=== PATIENT | male | born 1950 | race Caucasian/White ===

== ENCOUNTER 2020-02-16 11:14 | Inpatient (IN) ==
--- NOTE | 2020-01-12 12:07 | PAT Medication Instructions ---
Medication Instructions Date of Service January 12, 2020 Home Medications aspirin 325 mg PO QAM buspirone 5 mg PO QAM carvedilol 25 mg PO BID cholecalciferol (vitamin D3) [Vitamin D3] 50 mcg PO QAM digoxin [Digox] 125 mcg PO HS empagliflozin 25 mg PO TID ezetimibe 10 mg PO QAM furosemide 20 mg PO Q OTHER DAY gemfibrozil 600 mg PO BID hydrochlorothiazide 25 mg PO QAM insulin aspart U-100 [Novolog U-100 Insulin aspart] 1 sliding scale dose SUBCUT USEASDIRECTD insulin glargine [Lantus U-100 Insulin] 40 unit SUBCUT BID multivitamin 1 cap PO QAM pantoprazole 40 mg PO QAM sacubitril-valsartan [Entresto] 1 tab PO BID spironolactone 25 mg PO QAM tamsulosin 0.4 mg PO HS ASK your prescriber and surgeon aspirin 325 mg PO QAM STOP taking 48 hours before surgery gemfibrozil 600 mg PO BID DO NOT take the morning of surgery cholecalciferol (vitamin D3) [Vitamin D3] 50 mcg PO QAM empagliflozin 25 mg PO TID furosemide 20 mg PO Q OTHER DAY hydrochlorothiazide 25 mg PO QAM insulin aspart U-100 [Novolog U-100 Insulin aspart] 1 sliding scale dose SUBCUT USEASDIRECTD multivitamin 1 cap PO QAM spironolactone 25 mg PO QAM sacubitril-valsartan [Entresto] 1 tab PO BID Take morning of surgery With a small sip of water, OTHERWISE NOTHING TO EAT OR DRINK AFTER MIDNIGHT: buspirone 5 mg PO QAM carvedilol 25 mg PO BID ezetimibe 10 mg PO QAM pantoprazole 40 mg PO QAM Take evening before surgery carvedilol 25 mg PO BID digoxin [Digox] 125 mcg PO HS empagliflozin 25 mg PO TID insulin aspart U-100 [Novolog U-100 Insulin aspart] 1 sliding scale dose SUBCUT USEASDIRECTD insulin glargine [Lantus U-100 Insulin] 40 unit SUBCUT BID sacubitril-valsartan [Entresto] 1 tab PO BID tamsulosin 0.4 mg PO HS Insulin Dependent Diabetic Patients * Test your blood sugar the morning of surgery * If Blood Sugar is GREATER THAN 150, take HALF of your regular dose of: insulin glargine [Lantus U-100 Insulin] (20 units) * If Blood Sugar is LESS THAN 150, DO NOT TAKE ANY: insulin glargine [Lantus U- 100 Insulin] Other Notes If you have any questions please call us at [phone] or [phone] or [phone] or [phone]
--- NOTE | 2020-01-13 13:19 | Anesthesiology Consultation ---
Date of Service January 13, 2020 Assessment & Plan (1) Encounter for pre-operative examination: COVID Status: As of 01/12 assessment, patient denies travel to endemic area, known exposure/sick contacts, or symptoms of COVID19. Patient instructed that they and their household members must follow strict social distancing guidelines, wear a mask in public and avoid travel for 14 days prior to surgery. Preoperative COVID19 testing to be completed prior to surgery per surgeon's arrangements. Patient made aware to self-isolate as much as possible between COVID testing and surgery. Cardiology 01/10/20 = "dyspnea on exertion Significantly improved with Entresto. He no longer qualifies for an implantable defibrillator with the dramatic improvement in left ventricular systolic function... A preoperative stress test will definitely be positive so we will need to do preoperative cardiac catheterization to get him through his surgery." CARDIAC CATH DONE 01/23. PENDING REPORT AND FINAL CARDIOLOGY CLEARANCE. Chart Review Chart Review: Acceptable Risk for Surgery (pending final cardio clearance and cath report) and Patient seen in Pre Admission Testing Teaching & Discussion Instructed NPO after midnight before surgery, except medications with 15 cc of water. Medication instructions provided according to the PAT guidelines. History Surgery Operation Date: 02/16/20 07:15 Proposed Procedures p Right Reversed Total Shoulder Arthroplasty, Biceps Tenodesis - Naveen Lopez MD Height/Weight Height: 5 ft 9 in Weight: 104.3 kg Allergies Allergy/AdvReac Type Severity Reaction Status Date / Time metformin Allergy Mild Nausea Verified 01/11/20 11:14 Medications Home Medications Medication Instructions Recorded Confirmed Last Taken aspirin 325 mg PO QAM 01/11/20 01/11/20 Unknown buspirone 5 mg PO QAM 01/11/20 01/11/20 Unknown carvedilol 25 mg PO BID 01/11/20 01/11/20 Unknown cholecalciferol (vitamin D3) 50 mcg PO QAM 01/11/20 01/11/20 Unknown [Vitamin D3] digoxin [Digox] 125 mcg PO HS 01/11/20 01/11/20 Unknown empagliflozin 25 mg PO TID 01/11/20 01/11/20 Unknown ezetimibe 10 mg PO QAM 01/11/20 01/11/20 Unknown furosemide 20 mg PO Q OTHER DAY 01/11/20 01/11/20 Unknown gemfibrozil 600 mg PO BID 01/11/20 01/11/20 Unknown hydrochlorothiazide 25 mg PO QAM 01/11/20 01/11/20 Unknown insulin aspart U-100 [Novolog 1 sliding scale dose SUBCUT 01/11/20 01/11/20 Unknown U-100 Insulin aspart] USEASDIRECTD insulin glargine [Lantus U-100 40 unit SUBCUT BID 01/11/20 01/11/20 Unknown Insulin] multivitamin 1 cap PO QAM 01/11/20 01/11/20 Unknown pantoprazole 40 mg PO QAM 01/11/20 01/11/20 Unknown sacubitril-valsartan [Entresto] 1 tab PO BID 01/11/20 01/11/20 Unknown spironolactone 25 mg PO QAM 01/11/20 01/11/20 Unknown tamsulosin 0.4 mg PO HS 01/11/20 01/11/20 Unknown Past Medical History Medical History CAD (coronary artery disease) s/p CABG 1997 and 4 subsequent stents Congestive heart failure On Entresto, pt reports significant improvement in SOB/STOCKTON Diabetes mellitus, type 2 History of IN (myocardial infarction) 1997 Sleep apnea Couldn't tolerate CPAP Exercise / Class Metabolic Activity II 4-5 Yardwork/Stairs/Walk up hill (No CP or SOB with 1 FOS, does daily; some STOCKTON if carrying groceries up the steps) Past Surgical History Surgical History H/O cardiac catheterization 2017- Showed CHF History of ankle fracture with repair History of colonoscopy 2018 History of coronary artery bypass graft [facility], [facility] 4 stents total (unsure if bare metal or drug) Most recent stent placed 2013 History of tonsillectomy History of tooth extraction wisdom teeth Past Anesthesia History No Hx of Anesthesia Complications and No Family Hx of Anesthesia Complications History of PONV No Hx of PONV and No Hx of Motion Sickness Social History Smoking Status: Former smoker tobacco type: cigars Do You Dip or Chew Tobacco: No (quit 5 years) Smoking End Date: quit 25 years ago Hx Alcohol Use: Yes Alcohol type: beer alcohol intake frequency: holidays/special occasions only Hx Substance Use: No substance use type: does not use Review of Systems Pt denies any recent chest pain, shortness of breath, palpitations, cough, fever, URI, or uncontrolled acid reflux. Physical Exam Vital Signs BP: 102/67 P: 69bpm SPO2: 97% RA T: 98.4 F R: 12 ENMT Mouth: + dental restorations (veneers on all front upper and lower teeth); no chipped teeth and no loose teeth Thyromental Distance: > or= 3.5 Finger Breadths (4) Mallampati Class: III Neck normal visual inspection; neck extension not limited Respiratory normal respiratory effort Auscultation: lungs clear to auscultation bilaterally Cardiovascular Rate/Rhythm: regular rate and regular rhythm Heart Sounds: no murmur Vessels: no carotid bruit Extremities: no edema Testing Laboratory Results 01/13/20 12:35 01/13/20 12:35 PT 10.8 Seconds (9.0-12.0) 01/13/20 12:35 INR 1.0 (0.9-1.1) 01/13/20 12:35 APTT 26.5 Seconds (21.0-31.0) 01/13/20 12:35 Hemoglobin A1c 8.8 % (4.5-5.6) H 01/13/20 12:35 Urine Color Yellow 01/13/20 12:35 Urine Appearance Clear (Clear) 01/13/20 12:35 Urine pH 5.0 (4.5-7.5) 01/13/20 12:35 Ur Specific [place] 1.017 (1.000-1.030) 01/13/20 12:35 Urine Protein Negative (Negative) 01/13/20 12:35 Urine Glucose (UA) 3+ (Negative) H 01/13/20 12:35 Urine Ketones Negative (Negative) 01/13/20 12:35 Urine Nitrite Negative (Negative) 01/13/20 12:35 Ur Leukocyte Esterase Negative (Negative) 01/13/20 12:35 Blood Type O Positive 01/13/20 12:35 Antibody Screen NEGATIVE 01/13/20 12:35 Electrocardiogram Date: 01/10/20 Findings: + NSR @ (70bpm) Left axis deviation. Incomplete left bundle branch block. Nonspecific ST and T wave abnormality. Chest X-Ray Date: 01/13/20 Findings: + NAD Mild cardiomegaly. Prior median sternotomy. The lungs are clear. Diaphragms are smooth. Cardiac Catheterization Date: 12/18/17 Severe ischemic cardiomyopathy with an EF of 20%. The CARLOS to the LAD is the only patent graft. The wrangell RCA and circumflex are occluded. *Per cardiology, patient opted for medical mgmt, no ICD, and EF subsequently improved to 45%
--- NOTE | 2020-01-13 14:33 | XRay Report ---
XR chest Pre-admission PA/Lat CLINICAL HISTORY: pat preoperative evaluation COMPARISON STUDY: None FINDINGS: Mild cardiomegaly. Prior median sternotomy. The lungs are clear. Diaphragms are smooth. IMPRESSION: No acute process. ACT 112: Negative or not required by law. The above report was generated using voice recognition software. It may contain grammatical, syntax or spelling errors. Electronically signed by: Eliu Conn M.D. 01/13/2020 2:31 PM
[2020-01-13 14:39] LABS: Basophils # (auto) 0.03 K/uL (0-0.2); Basophils % (auto) 0.4 %; Eosinophils # (auto) 0.84 K/uL (0-0.5); Eosinophils % (auto) 9.8 %; Hematocrit (blood only) 42.5 % (42-52); Hemoglobin 14.2 g/dL (14.0-18.0); Immature Granulocytes % (auto) 1.2 %; Lymphocytes # (auto) 1.98 K/uL (1.2-3.4); Lymphocytes % (auto) 23.2 %; Mean Corpuscular Hgb Conc 33.4 g/dL (32-36); Mean Corpuscular Volume 89.7 fL (80-100); Mean Platelet Volume 9.8 fL (7.4-10.4); Monocytes # (auto) 0.55 K/uL (0.11-0.59); Monocytes % (auto) 6.4 %; Neutrophils # (auto) 5.05 K/uL (1.4-6.5); Platelet Count 216 K/uL (130-400); RDW Coefficient of Variation 13.3 % (11.5-14.5); Red Blood Count 4.74 M/uL (4.7-6.1); White Blood Count 8.55 K/uL (4.8-10.8)
[2020-01-13 14:43] LABS: Appearance Urine Clear (Clear); Bilirubin Urine Negative (Negative); Blood Urine Negative (Negative); Color Urine Yellow; Estimated Average Glucose 206 mg/dl; Glucose Urine UA 3+ (Negative); Hemoglobin A1C 8.8 % (4.5-5.6); Ketones Urine Negative (Negative); Leukocyte Esterase Urine Negative (Negative); Nitrite Urine Negative (Negative); Protein Urine Negative (Negative); Specific Gravity Urine 1.017 (1.000-1.030); Urobilinogen Urine Negative (Negative)
[2020-01-13 14:46] LABS: Albumin Level 3.7 gm/dl (3.4-5.0); BUN Creatinine Ratio 16.2 (10-20); Calcium 9.4 mg/dl (8.5-10.1); Creatinine Clr Calc Pharmacy 54.1 ml/min; Est GFR (Non-African American) 46.6; Potassium 4.1 mmol/L (3.5-5.1)
[2020-01-13 15:00] LABS: Partial Thromboplastin Ratio 0.9; Partial Thromboplastin Time 26.5 Seconds (21.0-31.0); Prothrombin Time 10.8 Seconds (9.0-12.0)
--- NOTE | 2020-02-15 20:41 | History and Physical Report ---
DATE OF ADMISSION: 02/16/2020 CHIEF COMPLAINT: Chronic right shoulder pain and weakness. HISTORY OF PRESENT ILLNESS: This is a 69-year-old male patient of Dr. Lopez'rand complaining of chronic right shoulder pain, longstanding, now progressively getting worse. The patient has failed conservative treatment including physical therapy, intra-articular injections, anti-inflammatories. The patient has been diagnosed with rotator cuff arthropathy per MRI exam and wished to proceed with right reverse total shoulder arthroplasty. PAST MEDICAL HISTORY: Coronary artery disease status post an NH in 1997, hypertension, hypercholesterolemia, sleep apnea, diabetes with insulin, osteoarthritis, acid reflux, obesity, dental issues, kidney stones. SOCIAL HISTORY: Nonsmoker and nondrinker. PAST SURGICAL HISTORY: CABG in 1997, stents placement in 2013. FAMILY HISTORY: Noncontributory. REVIEW OF SYSTEMS: Chronic right shoulder pain and weakness. Otherwise, denies any shortness of breath, chest pain, nausea, vomiting or any other joint complaints. MEDICATIONS: 1. Digoxin 250 mcg daily. 2. Furosemide 20 mg daily. 3. Nitroglycerin 0.4 mg sublingual as needed. 4. Aspirin 325 mg daily. 5. Carvedilol 25 mg twice daily. 6. Plavix 75 mg daily. 7. Empagliflozin 10 mg daily. 8. Entresto 1 tablet twice daily. 9. Flomax 0.4 mg daily at bedtime. 10. Gemfibrozil 600 mg 1 tablet twice daily. 11. Hydrochlorothiazide 12.5 mg daily. 12. Insulin per sliding scale as needed. 13. Lantus insulin as needed per sliding scale. 14. Pantoprazole 40 mg 1/2 tablet before meals. 15. Crestor 40 mg daily. 16. Spironolactone 25 mg daily. 17. Vitamin D twice daily. 18. Zetia 10 mg daily. ALLERGIES: METFORMIN. PHYSICAL EXAMINATION: GENERAL: Well-developed, well-nourished 69-year-old male, in no acute distress. He is alert and oriented x3 and pleasant. HEENT: Normocephalic, atraumatic. Extraocular motions are intact. Pupils are equal and reactive to light. HEART: Regular rate and rhythm. No murmurs appreciated. LUNGS: Clear. ABDOMEN: Soft, nontender, bowel sounds present. EXTREMITIES: Right upper extremity active range of motion of 0-165. Passive range of motion is full with pain and crepitation. He has positive Hooker's and impingement maneuvering. Neurologically and neurovascularly is intact in his right upper extremity. DIAGNOSES: Right shoulder rotator cuff arthropathy, coronary artery disease status post an NH in 1997, hypertension, hypercholesterolemia, sleep apnea, diabetes with insulin, osteoarthritis, acid reflux, obesity, history of kidney stone, history of dental issues. PLAN: The patient was advised of his diagnosis. Indications, risks, benefits, postop course have all been reviewed. The patient wished to proceed with a right reversed total shoulder arthroplasty. Necessary consent forms, preoperative testing and clearances will be obtained. LUPE
[~2020-02-16 11:14] MED LIST: ACETAMINOPHEN 500 MG TAB PO SCH; BUPIVACAINE 0.5 % 5 MG/1 ML PF 10ML VIAL ONE; CEFAZOLIN 2000MG 2,000 MG/15 ML SYR IV SCH; CeleBREX 200 MG CAP PO SCH; EPINEPHrine INJ 1 MG/ML AMP ONE; FAMOTIDINE 20 MG TAB PO SCH; GABAPENTIN 300 MG CAP PO SCH; LR 15ML/HR IV SCH; METOCLOPRAMIDE HCL 10 MG TABLET PO SCH; MIDAZOLAM HCL 1 MG/ML 2ML VIAL ONE; ROPIVACAINE 0.5% 5 MG/ML 30 ML VIAL ONE; dexAMETHasone 4 MG TAB PO SCH; fentaNYL citrate 100 MCG/2 ML VIAL ONE
--- NOTE | 2020-02-16 12:38 | History & Physical Bridge Note ---
Date of Service February 16, 2020 History & Physical Bridge Note I have examined the patient, reviewed the History & Physical and in the interval since the performance of the History & Physical I have noted the following changes of clinical significance: no changes noted
[2020-02-16] MEDS ORDERED: BACITRACIN INJ 50,000 UNIT VIAL ONE (12:44)
[2020-02-16] MEDS ORDERED: ATROPINE SULFATE 0.1 MG/ML 10ML SYR IV PRN (13:44)
[2020-02-16] MEDS ORDERED: HYDROmorphone INJ 1 MG/ML SYRINGE IV PRN (13:44)
[2020-02-16] MEDS ORDERED: ePHEDrine sulfate 50 MG/ML AMP IV PRN (13:44)
[2020-02-16] MEDS ORDERED: fentaNYL citrate 100 MCG/2 ML VIAL IV PRN (13:44)
[2020-02-16] MEDS ORDERED: ONDANSETRON INJ 2 MG/ML 2 ML VIAL IV PRN ×2 (13:44→18:06)
[2020-02-16] MEDS ORDERED: ONDANSETRON INJ 2 MG/ML 2 ML VIAL ONE (14:01)
[2020-02-16] MEDS ORDERED: PROPOFOL IV EMULSION 10 MG/ML 20 ML VIAL IV ONE (14:01)
[2020-02-16] MEDS ORDERED: ROCURONIUM BROMIDE 10 MG/ML 5 ML VIAL IV ONE ×2 (14:01→15:57)
[2020-02-16] MEDS ORDERED: SUCCINYLCHOLINE CHLORIDE 20 MG/ML 10 ML VIAL IV ONE (14:01)
[2020-02-16] MEDS ORDERED: ePHEDrine sulfate 50 MG/ML SYR ONE (14:03)
[2020-02-16] MEDS ORDERED: PHENYLEPHRINE HCL 10 MG/ML VIAL ONE ×2 (14:03→16:21)
[2020-02-16] MEDS ORDERED: PHENYLEPHRINE 100MCG/ML 5ML SYR ONE (14:03)
[2020-02-16] MEDS ORDERED: NEOSTIGMINE METHYLSULFATE 5 MG/5 ML SYR ONE (14:11)
[2020-02-16] MEDS ORDERED: GLYCOPYRROLATE 0.2 MG/ML VIAL ONE (14:11)
[2020-02-16] MEDS ORDERED: LARYING-O-JET KIT (LTA) ONE (16:18)
--- NOTE | 2020-02-16 16:52 | Post Operative Brief Note ---
Immediate Post Op Note v1 Date of Surgery February 16, 2020 Pre & Post Diagnosis Operation Date: 02/16/20 13:10 Pre-Op Diagnosis: Osteoarthritis, Right Shoulder, Biceps Tendinopathy, Rotator Cuff Arthropathy, Chronic Irrepairible Rotator Cuff, Calcific Tendonitis Post-Op Diagnosis: Osteoarthritis, Right Shoulder, Biceps Tendinopathy, Rotator Cuff Arthropathy, Chronic Irrepairible Rotator Cuff, Calcific Tendonitis I identified the patient and participated in the time-out.: Yes Procedure Operation Date: 02/16/20 13:10 Actual Procedures p Right Reversed Total Shoulder Arthroplasty, Biceps Tenodesis, Excision of Calcium Deposit, Rotator Cuff(Right) - Naveen Lopez MD Surgeon Naveen Lopez MD Catering Manager Nicanor DIAZ Estimated Blood Loss 150 Findings Consistent with Post-Op Diagnosis Specimens Humeral head Drains Hemovac Drain Anesthesia Type General Regional Complications none Disposition Accompanied Patient To Recovery: No Disposition: Recovery Room Overlapping Procedure I was immediately available: during the entire case.
--- NOTE | 2020-02-16 17:10 | Operative Report ---
Post Operative Report Pre & Post Diagnosis Operation Date: 02/16/20 13:10 Pre-Op Diagnosis: Osteoarthritis, Right Shoulder, Biceps Tendinopathy, Rotator Cuff Arthropathy, Chronic Irrepairible Rotator Cuff, Calcific Tendonitis Post-Op Diagnosis: Osteoarthritis, Right Shoulder, Biceps Tendinopathy, Rotator Cuff Arthropathy, Chronic Irrepairible Rotator Cuff, Calcific Tendonitis I identified the patient and participated in the time-out.: Yes Procedure Operation Date: 02/16/20 13:10 Actual Procedures p Right Reversed Total Shoulder Arthroplasty, Biceps Tenodesis, Excision of Calcium Deposit, Rotator Cuff(Right) - Naveen Lopez MD Surgeon Naveen Lopez MD Assistant Professor Of History Nicanor DIAZ Estimated Blood Loss 150 Findings Consistent with Post-Op Diagnosis Specimens Humeral head Drains 2 Hemovac Anesthesia Type General Regional Complications none Disposition Accompanied Patient To Recovery: No Disposition: Recovery Room Indications 69-year-old male with chronic pain right shoulder failed conservative management. Patient has marked weakness and pain. X-rays and MRI demonstrates calcium deposits in the supraspinatus consistent with calcific tendinitis advanced rotator cuff arthropathy with glenohumeral osteoarthritis subacromial impingement AC joint osteoarthritis large irreparable rotator cuff tear subscapularis supraspinatus infraspinatus with retraction and marked widening of the biceps with biceps tendinopathy Description of Procedure The patient was taken to the operating room and anesthetized under regional block and general anesthetic. The patient was positioned on the operating table in a 30 beachchair position with a towel roll under the medial border of the right scapula. The arm was draped free to be able to manipulate the shoulder as needed. The right upper extremity was prepped and draped in usual sterile fashion. Exam demonstrated external rotation about 80 degrees and abduction to 70 degrees forward flexion 100 degrees [id number] crepitation. An anterior deltopectoral approach was performed. A longitudinal incision was made in the deltopectoral interval. The skin was incised sharply. Subcutaneous flaps were elevated off the fascia. The cephalic vein was dissected out and retracted lateral with the deltoid. The clavipectoral fascia was markedly s carred and we are not any normal soft tissue planes. I carefully dissected the scar tissue away from the capsule and developed a plane between the strap muscles then conjoined tendon and the capsular type tissue. There was a massive rotator cuff tear with no subscapularis tendon tissue with the tendon all retracted medial to the conjoined tendon. There was only a 1 cm of inferior capsule overlying a large osteophyte along the inferior neck of the humerus. There was also marked scarring between the deltoid and humerus and rotator cuff. There was scarred bursa tissue adhesions between the deltoid and the rotator cuff tissue which made dissection difficult. Several bleeders were tied off including crossing veins using silk ties and some were cauterized. The biceps tendon was still in the groove but proximally was markedly widened and was about 3 cm wide proximally. There was no rotator cuff back to the anterior fibers of the infraspinatus but there was some residual supraspinatus tendon tissue attached to the greater tuberosity it was very prominent in which there was a calcium deposit which corresponded to the x-ray findings with calcific tendinitis in that area. The section of supraspinatus was resected along with a calcium material.. The upper centimeter of the pectoralis was released for inferior exposure. the biceps tendon was tenodesed to the pectoralis tendon with #2 FiberWire. The proximal biceps was resected. subperiosteal dissection was performed along the neck of the humerus releasing the 1 cm remaining capsule. As the arm is gradually externally rotated exposing the humeral head. The humeral head and large inferior spurs. Plane between the capsule and the humerus was maintained to protect the axillary nerve inferiorly. retractors were readjusted and the inferior osteophytes were all resected using an artist chisel. A Cornell elevator was used to assist in releasing the capsule of the neck of the humerus. A Fukuda retractor was placed into the joint retracting the humeral head posterior. Glenoid findings demonstrated osteoarthritic glenoid with grade 3 chondral wear peripheral osteophytes including a large anterosuperior osteophyte. The labrum and biceps tendon was resected. an anterior-inferior and posterior inferior capsular release were performed with electrocautery and a Cornell elevator on bone with the axillary nerve protected inferiorly by the retractor. Attention was then taken to the humeral preparation. The cutting guide was placed into the humeral head. It was positioned at 20 of retroversion. Oscillating saw was used to resect the humeral head giving the cut above the level of the posterior rotator cuff insertion site. The humerus was then prepared for the stem. I used the ascend flex stem from [employer]. The sizing broaches were used followed by trial broaches up to a size 6 which had the appropriate fit and fill. The appropriate sized cut protector was placed. The humerus was then retracted posterior to the glenoid. The glenoid was sized for a 29 baseplate. The guide for the baseplate was positioned in a 10 inferior tilt and the central drill hole was made. The reamer for the 29 baseplate was used. The central drill was widened for the peg. The Tornier hydroxyapatite-coated aequalis 29 mm baseplate was impacted into position. The base plate was transfixed with superior and inferior locking screws and anterior and posterior compression screws with stable fixation. The fan reamer was used for the 42 millimeter glenoid sphere. After irrigation the 42 standard glenoid sphere was impacted onto the baseplate and the screw was tightened. Attention was taken back to the humerus. The cut protector was removed and the plus or high offset humeral tray trial was assembled to the trial stem rotated appropriately to get bony coverage and then screwed in position. A trial reduction was performed. A +6 trial insert demonstrated that I was unable to reduce the smallest size due to being too tight. I downsized the broach to a size 5 and we had to go ahead and make to sequential proximal humerus cuts until we were able to reduce the +6 component.. The trials were removed. The canal was irrigated with antibiotic solution with bacitracin. The final component was assembled. The final component was ascend Flex size 5B long stem with a plus or high offset tray with a 42+6 polyethylene reversed insert. This was then impacted into the humerus with a tight press-fit. I used some cancellus bone from the humeral head to pack around the stem prior to fully inserting it to enhance the press-fit fixation. It was reduced to the glenoid sphere. Stability was verified. There was no shuck and the shoulder was stable through 130 degrees forward elevation 80 degrees abduction 70 degrees external rotation. The pectoralis was repaired with #2 FiberWire [id number] sutures reinforcing the biceps tendon tenodesis. The implant was stable through the range of motion tested. The wound was copiously irrigated. 2 Hemovac drains were placed. The deltopectoral interval was closed with [id number] #1 Vicryl sutures. The subcutaneous tissues were closed with 2-0 Vicryl sutures. The skin was closed with doretha. Sterile dressings were applied and a shoulder immobilizer. Nicanor DIAZ my physician nurse practitioner physicians assistant assisted in the procedure to the entire procedure including patient positioning arm positioning prepping and draping soft tissue retraction instrument management suture management and performed the subcutaneous and skin closure and will participate in the postoperative care of the patient. I attest to the content of the Intraoperative Record and any orders documented therein. Any exceptions are noted below.
--- NOTE | 2020-02-16 17:16 | Anesthesiology Progress Note ---
Date of Service February 16, 2020 Anesthesia Post Procedure Vital Signs Vital Signs: Temp Pulse Pulse Resp BP Pulse Ox 02/16/20 17:05 66 18 107/65 98 02/16/20 16:56 36.4 C L 70 21 127/68 95 02/16/20 12:42 36.7 C 64 20 149/87 H 97 02/16/20 11:38 37 C 65 18 131/74 97 Transfer of Care Handoff Completed per policy Notes Mental Status: alert / awake / arousable Patient Amnestic to Procedure: Yes Nausea / Vomiting: adequately controlled Pain: adequately controlled Airway Patency, RR, SpO2: stable & adequate BP & HR: stable & adequate Hydration State: stable & adequate Anesthetic Complications: no major complications apparent and Pt Satisfied with anesthetic care Notes: The patient is awake and comfortable. His vital signs are stable. Postop BSG is 170.
--- NOTE | 2020-02-16 17:28 | XRay Report ---
XR shoulder RT min 2V routine CLINICAL HISTORY: Post shoulder surgery COMPARISON STUDY: None. FINDINGS: Status post reverse right total shoulder arthroplasty. The hardware is intact. No fracture or dislocation. Skin doretha and surgical drains are in place. IMPRESSION: Status post reverse right total shoulder arthroplasty. No evidence for hardware complica tion. ACT 112: Negative or not required by law. Electronically signed by: Tolu Davis M.D. 02/16/2020 5:26 PM
[2020-02-16] MEDS ORDERED: MAGNESIUM HYDROXIDE SUSP 30 ML UDC PO PRN (18:06)
[2020-02-16] MEDS ORDERED: bisacodyL 10 MG SUPP PR PRN (18:06)
[2020-02-16] MEDS ORDERED: NALOXONE HCL 0.4 MG/1 ML VIAL/CARP IV PRN (18:06)
[2020-02-16] MEDS ORDERED: PHARMACY GLYCEMIC MGMT CONSULT PRN (18:39)
[2020-02-16] MEDS ORDERED: CARBOHYDRATES FOR HYPOGLYCEMIA PO PRN (18:45)
[2020-02-16] MEDS ORDERED: GLUCOSE 10 TABS/TUBE PO PRN (18:45)
[2020-02-16] MEDS ORDERED: DEXTROSE 50% 50 ML SYRINGE IV PRN (18:45)
[2020-02-16] MEDS ORDERED: GLUCAGON FOR INJ 1 MG VIAL IM PRN (18:45)
[2020-02-16] MEDS ORDERED: GLUCOSE 40% GEL 15 GM TUBE PO PRN (18:45)
[2020-02-16] MEDS: SODIUM CHLORIDE 0.9% 1000ML 1,000 ML IV SCH (18:56)
[2020-02-16] MEDS: INSULIN ASPART 100 UNITS/ML 3 ML PEN SC SCH ×3 (19:03→23:56)
[2020-02-16] MEDS ORDERED: COUGH DROP (SUGAR FREE) LOZ 24 LOZ/1 BOX BUCCAL ONE (19:07)
--- NOTE | 2020-02-16 19:15 | Pharmacy Report ---
Glycemic Control Consultation - Date of Service February 16, 2020 - Scope Scope: Glycemic Pharmacist consulted for glycemic control and to write orders per [facility] inpatient glycemic control protocol. - Objective Weight: 104.4 kg Accuchecks BSG (last 24hrs): 02/16/20 02/16/20 02/16/20 11:39 17:02 18:21 POC Glucose 142 H 170 H 202 H HbA1c: Hemoglobin A1c 8.8 % (4.5-5.6) H 01/13/20 12:35 - Recent Pertinent Medications Outpatient Anti-diabetic Regimen: * Lantus 40 units bid, novolog 10 units tidm, empagliflozin * A1c = 8.8 % 01/13/20 Risk Factors for Insulin Resistance: * Steroids: dex * Recent Surgery: POD 0 * Diet: yes - Assessment & Plan Assessment & Plan: ASSESSMENT: * 69 year old male now s/p shoulder arthroplasty, POD 0. Type 2 diabetic managed on both insulin/orals at home. Pharmacy consulted for glycemic management. Received po steroids preop, therefore anticipate steroid induced hyperglycemia * Plan to stress home dose of insulin. Per notes, took 20 units of Lantus LIFE SK[employer]S EDUCATOR, plan to add scale for HS time PLAN FOR INPATIENT GLYCEMIC CONTROL: * Holding outpatient oral diabetes medications * Basal insulin * Lantus 30-40 BID * Bolus insulin * NovoLog per scale ACHS or Q6hrs while NPO * Goal Range: Low 110 mg/dL - High 140 mg/dL * Correction Factor: 12 mg/dL/unit * Nutritional / Prandial insulin per carb ratio of 1 unit per 4 grams CHO consumed * Please note that the plan above was derived based on current level of insulin resistance and hospital stress. These recommendations are appropriate for inpatient admission only. Plan of care upon discharge will need to be reassessed to avoid potential outpatient hypo/hyperglycemia. Thank you.
--- NOTE | 2020-02-16 20:18 | Hospitalist Consultation ---
Date of Consultation February 16, 2020 Assessment & Plan (1) Status post reverse arthroplasty of right shoulder: Mr. Osorio is a 69 yo male with h/o right shoulder cuff arthropathy, multi-vessel CAD (CABG 1997 with 4 subsequent stent placements), Systolic Heart Failure (EF 40% per cath on 01/25/2020), T2DM, HTN, HLD, Hypertriglyceridemia, CAIN, who is s/p right reversed total shoulder arthroplasty on 02/16/2020. We were consulted for post-operative medical management. S/p Right Shoulder Reverse Total Shoulder Arthroplasty - doing well post-operatively - Shoulder XR showing no hardware complication - mild operative blood loss 150cc - tolerating diet - non-labored breathing, using IS - voiding spontaneously - Hemovac draining blood, no purulence - monitor for return of flatus/BMs - continue PRN Colace/Dulcolax/Senokot to encourage flatus/BMs - continue Dilaudid 0.5 mg IV Q4H PRN for post-op pain - Zofran 4 mg IV Q6H PRN for nausea - Protonix 40 mg PO QAM for GERD - continue Cefazolin 2g perioperative prophylaxis - PT/OT/CM ordered per discharge planning CAD - multi-vessel involvement - last cath on 01/25/2020 without new stent placements - stable with current home medication regimen - recommend continuing all home medications as already ordered - Aspirin 325 mg PO QAM - Plavix 75 mg PO daily - recommend PRN EKG for chest pain (currently no chest pain) Systolic Heart Failure - EF improved from 25% to 40% from 12/2017 to 01/2020 - Euvolemic on exam today: no JVD, lung crackles, LE edema - stable with current home medication regimen - recommend continuing all home medications besides Lasix, as already ordered - Carvedilol 25 mg PO BID - Digoxin 0.125mg PO QHS - HCTZ 25 mg PO QAM - Spironolactone 25 mg PO QAM - Entresto 49/51mg PO BID - continue to monitor for volume status on exam - recommend no further IVFs as patient is tolerating diet well T2DM - POC 142-202 during current admission - Continue basal insulin and SSI as ordered BPH - stable, voiding spontaneously - continue home Tamsulosin 0.4 mg PO QHS FEN/GI: Heart-Healthy/DM2 diet, NSS @100cc/hr until tomorrow morning DVT Prophylaxis: Plavix as mentioned above Code Status: Full Code Disposition: Med/Surg, dispo per primary team (2) CAD (coronary artery disease): (3) Congestive heart failure: (4) Diabetes mellitus, type 2: Supervising Physician Co-Signing Physician Notes Patient seen and examined, chart reviewed, case discussed with Dr. Leone and I agree with his assessment and plan as documented above. Briefly, patient is a 69-year-old male status post right reverse total shoulder arthroplasty performed by Dr. Robison on 02/16/2020. Procedure well-tolerated, no complications identified. Patient presently comfortable complaining only of minimal pain, no nausea. On exam patient is afebrile, hemodynamically stable, sitting at the edge of the bed in no acute distress Skindressing in place, no bleeding or drainage HEENTnormocephalic/atraumatic, pupils equal round react to light, moist mucous membranes, neck supple Heart+ S1, S2, regular, no murmur/rub/gallops Lungsclear to auscultation Abdomenpositive bowel sounds, soft, nontender, nondistended Extremitieswarm, well-perfused Labs and images reviewed Assessment/[id number] male status post right reverse total shoulder arthroplasty performed 02/16/[address] Robison. Patient with stable medical issues, diabetes/CHF and CAD. Continue home medications as above -Pain control as needed, bowel regimen, antiemetics Should patient require rehab, he is interested to know if he qualifies for PT/OT at the [facility] History of Present Illness Reason for Consultation: med management s/p right reversed total shoulder arthroplasty Requesting Physician: Naveen Lopez MD Attending Physician: Naveen Lopez MD History of Present Illness Mr. Osorio is a 69 yo male with h/o right shoulder cuff arthropathy, multi- vessel CAD (CABG 1997 with 4 subsequent stent placements), Systolic Heart Failure (EF 40% per cath on 01/25/2020), T2DM, HTN, HLD, Hypertriglyceridemia, CAIN, who is s/p right reversed total shoulder arthroplasty on 02/16/2020. We were consulted for post-operative medical management. The patient received appropriate medical clearance from his PCP and Print Shop Chief Clerk before this surgery, and he tolerated the surgery well with minor blood loss of 150cc; post-op shoulder XR showed no evidence of hardware complication. The patient currently denies post-operative pain, denies headache, chest pain, shortness of breath, abdominal pain, lower extremity swelling. He had just eaten dinner and is tolerating it well without postprandial epigastric or abdominal pain. He is using his incentive spirometer without issues. He has been out of bed yet but is planning to get OOB to the bathroom soon. Denies passing flatus at this point. Allergies Allergy/AdvReac Type Severity Reaction Status Date / Time metformin AdvReac Mild Nausea Verified 02/16/20 11:44 Home Medications Home Medications Medication Instructions Recorded Confirmed Type aspirin 325 mg PO QAM 01/11/20 02/16/20 History buspirone 5 mg PO QAM 01/11/20 02/16/20 History carvedilol 25 mg PO BID 01/11/20 02/16/20 History cholecalciferol (vitamin D3) 50 mcg PO QAM 01/11/20 02/16/20 History [Vitamin D3] digoxin [Digox] 125 mcg PO HS 01/11/20 02/16/20 History empagliflozin 25 mg PO BID 01/11/20 02/16/20 History ezetimibe 10 mg PO QAM 01/11/20 02/16/20 History furosemide 20 mg PO Q OTHER DAY 01/11/20 02/16/20 History gemfibrozil 600 mg PO BID 01/11/20 02/16/20 History hydrochlorothiazide 25 mg PO QAM 01/11/20 02/16/20 History insulin aspart U-100 [Novolog 1 sliding scale dose SUBCUT 01/11/20 02/16/20 History U-100 Insulin aspart] USEASDIRECTD insulin glargine [Lantus U-100 40 unit SUBCUT BID 01/11/20 02/16/20 History Insulin] multivitamin 1 cap PO QAM 01/11/20 02/16/20 History pantoprazole 40 mg PO QAM 01/11/20 02/16/20 History sacubitril-valsartan [Entresto] 1 tab PO BID 01/11/20 02/16/20 History spironolactone 25 mg PO QAM 01/11/20 02/16/20 History tamsulosin 0.4 mg PO HS 01/11/20 02/16/20 History clopidogrel [Plavix] 75 mg PO DAILY 02/16/20 02/16/20 History Patient History Medical History (Updated 02/16/20 @ 20:34 by Rajinder Leone MD) CAD (coronary artery disease) s/p CABG 1997 and 4 subsequent stents Congestive heart failure On Entresto, pt reports significant improvement in SOB/STOCKTON Diabetes mellitus, type 2 History of [place] (myocardial infarction) 1997 Sleep apnea Couldn't tolerate CPAP Surgical History (Updated 02/16/20 @ 20:34 by Rajinder Leone MD) H/O cardiac catheterization 2017- Showed CHF History of ankle fracture with repair History of colonoscopy 2018 History of coronary artery bypass graft 1997, [facility] 4 stents total (unsure if bare metal or drug) Most recent stent placed 2013 History of tonsillectomy History of tooth extraction wisdom teeth Social History Smoking Status: Former smoker Smoking End Date: quit 25 years ago; Do You Dip or Chew Tobacco: No (quit 5 years); Hx Alcohol Use: Yes Alcohol type: beer Hx Substance Use: No Preferred Language: Swedish Beliefs That Will Affect Care: None Current Living Situation: Spouse Current Living Situation Comment: Lives with Feels Safe at Home: Yes Safety Concerns: Feels Safe At This Time Review of Systems Constitutional: no fever and no chills Eyes: no worsening vision Ear, Nose, Mouth, Throat: no hearing loss Respiratory: no cough and no dyspnea Cardiovascular: no chest pain, no palpitations and no edema Gastrointestinal: no abdominal pain, no nausea and no vomiting Genitourinary: no dysuria Neurologic: no generalized weakness, no dizziness and no headache(s) Hematologic / Lymphatic: no easy bleeding and no easy bruising Physical Exam Constitutional: WD/WN, vitals as above Eyes: PERRL, conjunctivae normal, anicteric sclerae ENMT: Ears: no hearing impairment Throat: no posterior oropharynx abnormality Neck: trachea midline, no thyromegaly Respiratory: normal respiratory effort, lungs clear to auscultation Cardiovascular: RRR, no murmur, no edema Gastrointestinal (Abdomen): normal bowel sounds, soft, nontender, no hepatosplenomegaly Musculoskeletal: right shoulder with operative dressing c/d/i Skin: no rashes, warm and dry Lymphatic: no cervical lymphadenopathy Results & Data Results & Data ([facility]) Vital Signs (Past 12 Hours) Vital Signs Temp Pulse Pulse Resp BP Pulse Ox 02/16/20 20:00 36.8 C 83 16 116/75 94 02/16/20 19:12 77 20 112/72 95 02/16/20 18:36 36.5 C 79 20 120/75 95 02/16/20 18:06 36.8 C 70 22 102/60 94 02/16/20 17:35 36.4 C L 65 21 110/61 96 02/16/20 17:25 67 19 120/73 94 02/16/20 17:15 67 22 115/60 98 02/16/20 17:05 66 18 107/65 98 02/16/20 16:56 36.4 C L 70 21 127/68 95 02/16/20 12:42 36.7 C 64 20 149/87 H 97 02/16/20 11:38 37 C 65 18 131/74 97 Resident Activity Tracking Resident Involvement: Resident Care Provided Care Provided: Adult Hospital Medicine
[2020-02-16] MEDS: DOCUSATE SODIUM 100 MG CAP PO SCH (20:19)
[2020-02-16] MEDS: SENNA 8.6 MG TAB PO SCH (20:19)
[2020-02-16] MEDS: DIGOXIN 0.125 MG TAB PO SCH (20:20)
[2020-02-16] MEDS: SACUBITRIL-VALSARTAN 49/51 MG TAB PO SCH (20:20)
[2020-02-16] MEDS: carvediloL 25 MG TAB PO SCH (20:20)
[2020-02-16] MEDS: gemfibroziL 600 MG TAB PO SCH (20:20)
[2020-02-16] MEDS: TAMSULOSIN HCL 0.4 MG CAP PO SCH (20:20)
[2020-02-16] MEDS ORDERED: INSULIN GLARGINE SOLOSTAR 100 UNITS/ML 3 ML PEN SC SCH ×2 (21:00)
[2020-02-16] MEDS ORDERED: NON-FORMULARY MEDICATION (Empagliflozin 25 MG) PO SCH (21:00)
[2020-02-16] MEDS: ACETAMINOPHEN 500 MG TAB PO SCH (21:58)
[2020-02-16] MEDS: CEFAZOLIN 2000MG 2,000 MG/15 ML SYR IV SCH (22:05)
[2020-02-17] MEDS: OXYCODONE HCL IR 5 MG TAB (IMMEDIATE RELEASE) PO PRN ×4 (00:52→20:47)
[2020-02-17] MEDS: INSULIN ASPART 100 UNITS/ML 3 ML PEN SC SCH ×5 (04:03→20:49)
[2020-02-17] MEDS: ACETAMINOPHEN 500 MG TAB PO SCH ×3 (05:13→22:23)
[2020-02-17] MEDS: CEFAZOLIN 2000MG 2,000 MG/15 ML SYR IV SCH (05:14)
[2020-02-17] MEDS: SODIUM CHLORIDE 0.9% 1000ML 1,000 ML IV SCH (06:09)
[2020-02-17 06:23] LABS: Basophils # (auto) 0.01 K/uL (0-0.2); Basophils % (auto) 0.1 %; Eosinophils # (auto) 0.01 K/uL (0-0.5); Eosinophils % (auto) 0.1 %; Hematocrit (blood only) 36.6 % (42-52); Immature Granulocytes # (auto) 0.04 K/uL (0.00-0.02); Immature Granulocytes % (auto) 0.4 %; Lymphocytes # (auto) 1.27 K/uL (1.2-3.4); Lymphocytes % (auto) 12.4 %; Mean Corpuscular Hemoglobin 29.2 pg (25-34); Mean Corpuscular Hgb Conc 32.8 g/dL (32-36); Mean Corpuscular Volume 89.1 fL (80-100); Mean Platelet Volume 9.5 fL (7.4-10.4); Monocytes # (auto) 0.87 K/uL (0.11-0.59); Monocytes % (auto) 8.5 %; Neutrophils # (auto) 8.01 K/uL (1.4-6.5); Neutrophils % (auto) 78.5 %; Platelet Count 205 K/uL (130-400); RDW Coefficient of Variation 13.6 % (11.5-14.5); RDW Standard Deviation 44.5 fL (36.4-46.3); Red Blood Count 4.11 M/uL (4.7-6.1); White Blood Count 10.21 K/uL (4.8-10.8)
--- NOTE | 2020-02-17 06:32 | Billing Data ---
Date of Service February 16, 2020 Coding Level of Care Code 95722 Inpt Consult Level 3
[2020-02-17 06:48] LABS: BUN Creatinine Ratio 21.2 (10-20); Calcium 9.3 mg/dl (8.5-10.1); Creatinine Clr Calc Pharmacy 53.4 ml/min; Est GFR (African American) 53.1; Est GFR (Non-African American) 45.8; Potassium 4.2 mmol/L (3.5-5.1)
--- NOTE | 2020-02-17 08:16 | Anesthesiology Progress Note ---
Date of Service February 17, 2020 Anesthesia Post Procedure Vital Signs Vital Signs: Temp Pulse Pulse Pulse Pulse Resp BP 02/17/20 07:07 36.7 C 70 16 98/62 L 02/17/20 03:59 36.7 C 68 16 104/63 02/16/20 23:26 36.8 C 86 18 95/59 L 02/16/20 21:15 36.7 C 80 16 130/78 02/16/20 20:20 82 02/16/20 20:00 36.8 C 83 16 116/75 02/16/20 19:12 77 20 112/72 02/16/20 18:36 36.5 C 79 20 120/75 02/16/20 18:06 36.8 C 70 22 102/60 02/16/20 17:35 36.4 C L 65 21 110/61 02/16/20 17:25 67 19 120/73 02/16/20 17:15 67 22 115/60 02/16/20 17:05 66 18 107/65 02/16/20 16:56 36.4 C L 70 21 127/68 02/16/20 12:42 36.7 C 64 20 149/87 H 02/16/20 11:38 37 C 65 18 131/74 Pulse Ox 02/17/20 07:07 93 02/17/20 03:59 91 02/16/20 23:26 97 02/16/20 21:15 91 02/16/20 20:20 02/16/20 20:00 94 02/16/20 19:12 95 02/16/20 18:36 95 02/16/20 18:06 94 02/16/20 17:35 96 02/16/20 17:25 94 02/16/20 17:15 98 02/16/20 17:05 98 02/16/20 16:56 95 02/16/20 12:42 97 02/16/20 11:38 97 Notes Mental Status: alert / awake / arousable Patient Amnestic to Procedure: Yes Nausea / Vomiting: adequately controlled Pain: adequately controlled Airway Patency, RR, SpO2: stable & adequate BP & HR: stable & adequate Hydration State: stable & adequate Anesthetic Complications: no major complications apparent and Pt Satisfied with anesthetic care
--- NOTE | 2020-02-17 08:27 | Orthopedic Progress Note ---
Date of Service February 17, 2020 Assessment & Plan (1) Status post reverse arthroplasty of right shoulder: POD #1 Right reverse TSA Limited PT/ OT DVT proph- ASA and Plavix D/C plans - Home with HEP only As per medicine- elevated BUN/ Cr. Admission and Anticipated Discharge Date Admission Date: February 16, 2020 Subjective POD #1, Feeling well. Denies SOB, CP, N/V Pain controlled this AM BUN/ Cr elevated Physical Exam Physical Exam: Right shoulder dressings c/d/i, no drainage. Fingers mobile. Sling in tact. A&Ox3. Results & Data ([facility]) Vital Signs (Past 12 Hours) Vital Signs Temp Pulse Pulse Resp BP Pulse Ox 02/17/20 07:07 36.7 C 70 16 98/62 L 93 02/17/20 03:59 36.7 C 68 16 104/63 91 02/16/20 23:26 36.8 C 86 18 95/59 L 97 02/16/20 21:15 36.7 C 80 16 130/78 91
[2020-02-17] MEDS: hydroCHLOROthiazide 25 MG TAB PO SCH (08:34)
[2020-02-17] MEDS: MULTIVITAMIN TAB PO SCH (08:34)
[2020-02-17] MEDS: gemfibroziL 600 MG TAB PO SCH ×2 (08:34→20:39)
[2020-02-17] MEDS: SACUBITRIL-VALSARTAN 49/51 MG TAB PO SCH ×2 (08:34→20:39)
[2020-02-17] MEDS: SPIRONOLACTONE 25 MG TAB PO SCH (08:35)
[2020-02-17] MEDS: CLOPIDOGREL BISULFATE 75 MG TAB PO SCH (08:35)
[2020-02-17] MEDS: ASPIRIN 325 MG ECTAB PO SCH (08:35)
[2020-02-17] MEDS: carvediloL 25 MG TAB PO SCH ×2 (08:35→20:39)
[2020-02-17] MEDS: EZETIMIBE 10 MG TABLET PO SCH (08:35)
[2020-02-17] MEDS: DOCUSATE SODIUM 100 MG CAP PO SCH ×2 (08:35→20:39)
[2020-02-17] MEDS: PANTOprazole 40 MG TAB PO SCH (08:36)
[2020-02-17] MEDS ORDERED: INSULIN GLARGINE SOLOSTAR 100 UNITS/ML 3 ML PEN SC ONE ×2 (09:00)
--- NOTE | 2020-02-17 09:48 | Pharmacy Report ---
Pharmacy Glycemic Short Note 2 - Date of Service February 17, 2020 - Glycemic Short BSG Results (Last 24 hours): OUTPATIENT ANTIDIABETIC REGIMEN: * Lantus 40 units SC BID + Novolog 10 units SC TIDM + Jardiance 25 mg PO Daily * A1c = 8.8% (01/13/2020) ASSESSMENT: 02/16: * BSGs post-operatively yesterday were: 170-202-209 mg/dL * Received 111 units of insulin: 80 units basal + 31 units bolus * Patient was given an extra 20 units of basal last night for hyperglycemia, likely related to stress of surgery and steroids * Fasting BSG this AM was 133 mg/dL - controlled * Stressed patient's home basal dose for today until PO dexamethasone dose wears off * Will likely be able to transition patient back to home basal regimen eva orrow * No changes necessary to Novolog parameters 02/15: * 69 year old male now s/p shoulder arthroplasty, POD 0. Type 2 diabetic managed on both insulin/orals at home. Pharmacy consulted for glycemic management. Received po steroids preop, therefore anticipate steroid induced hyperglycemia * Plan to stress home dose of insulin. Per notes, took 20 units of Lantus DECALER, plan to add scale for HS time PLAN FOR INPATIENT GLYCEMIC CONTROL: * Hold outpatient oral diabetes medications * Basal insulin - increased * Lantus 50 units SQ qAM * Lantus 40 units SQ qPM * Bolus insulin - no change * NovoLog per scale ACHS or Q6hrs while NPO * Goal Range: Low 110 mg/dL - High 140 mg/dL * Correction Factor: 12 mg/dL/unit * Nutritional / Prandial insulin per carb ratio of 1 unit per 4 grams CHO consumed PLAN FOR DISCHARGE: * to be determined
[2020-02-17] MEDS: HYDROmorphone INJ 0.5 MG/0.5 ML SYR IV PRN ×2 (13:42→18:59)
[2020-02-17] MEDS ORDERED: KETOROLAC 30 MG/ML VIAL IV ONE (14:36)
[2020-02-17] MEDS: SENNA 8.6 MG TAB PO SCH (20:39)
[2020-02-17] MEDS: TAMSULOSIN HCL 0.4 MG CAP PO SCH (20:39)
[2020-02-17] MEDS: DIGOXIN 0.125 MG TAB PO SCH (20:39)
--- NOTE | 2020-02-17 20:54 | Hospitalist Progress Note ---
Date of Service February 17, 2020 Assessment & Plan (1) Status post reverse arthroplasty of right shoulder: POD #1 s/p right total shoulder by Dr Lopez doing well from ortho standpoint (2) CAD (coronary artery disease): no ischemic symptoms at this time resulting ischemic cardiomyopathy from prior ACS EF 45-50% cont asa, BB, plavix, lipid lowering agents (3) Congestive heart failure: EF 45-50% based on outside reports appears compensated today cont entresto cont aldactone cont coreg (4) Diabetes mellitus, type 2: pharmacy managing appreciate their assistance controlled (5) Chronic kidney disease, stage 3a: Cr stable today at 1.5 repeat BMP am (6) Acute blood loss anemia: mild, 2 gram drop from admission repeat Hb in am if any further drop then Ferrous sulfate supplementation at d/c (7) BPH (benign prostatic hyperplasia): cont flomax no voiding issues (8) DVT prophylaxis: asa with plavix updated at bedside no passage of flatus or stool yet, but patient not distended on exam, eating well, and NO GI symptoms follow carefully Admission and Anticipated Discharge Date Admission Date: February 16, 2020 Subjective patient eating dinner during my visit only complaint is that of right shoulder pain denies chest pain, dyspnea, STOCKTON, or abd pain no nausea or emesis eating well ambulating no flatus or BM yet Review of Systems Constitutional: no fever Respiratory: no cough Genitourinary: no difficulty urinating Physical Exam Constitutional: well developed, well nourished and + obese; no acute distress and no altered mental status ENMT: external ear and nose normal, oropharynx normal Respiratory: normal respiratory effort, lungs clear to auscultation Cardiovascular: Rate/Rhythm: regular rate and regular rhythm Heart Sounds: normal S1 and normal S2; no murmur Vessels: posterior tibial pulses present and dorsalis pedis pulses present; no JVD Extremities: no edema Gastrointestinal (Abdomen): normal bowel sounds, soft, nontender, no hepatosplenomegaly Musculoskeletal: right shoulder - dressings in place, vac in place, sling in place; mild swelling about the shoulder; right handgrip 5/5 Psychiatric: A+Ox3, euthymic affect Results & Data Results & Data ([facility]) Vital Signs (Past 12 Hours) Vital Signs Temp Pulse Pulse Resp BP Pulse Ox 02/17/20 20:39 66 02/17/20 20:30 36.8 C 68 17 133/78 90 02/17/20 15:23 36.5 C 59 L 17 138/73 92 02/17/20 12:00 36.5 C 65 16 135/82 92 Laboratory Results Laboratory Results - last 24 hr 02/16/20 02/16/20 02/17/20 21:52 23:53 03:56 WBC RBC Hgb Hct MCV MCH MCHC RDW Std Deviation RDW Coeff of Harry Plt Count MPV Immature Gran % (Auto) Neut % (Auto) Lymph % (Auto) Bryan % (Auto) Eos % (Auto) Baso % (Auto) Neut # (Auto) Lymph # (Auto) Bryan # (Auto) Eos # (Auto) Baso # (Auto) Immature Gran # (Auto) Sodium Potassium Chloride Carbon Dioxide Anion Gap BUN Creatinine Est Cr Clr Drug Dosing Est GFR ( Amer) Est GFR (Non-Af Amer) BUN/Creatinine Ratio Glucose POC Glucose 209 H 182 H 145 H Calcium Hepatitis C Ab Screen 02/17/20 02/17/20 02/17/20 05:52 05:52 05:52 WBC 10.21 RBC 4.11 L Hgb 12.0 L Hct 36.6 L MCV 89.1 MCH 29.2 MCHC 32.8 RDW Std Deviation 44.5 RDW Coeff of Harry 13.6 Plt Count 205 MPV 9.5 Immature Gran % (Auto) 0.4 Neut % (Auto) 78.5 Lymph % (Auto) 12.4 Bryan % (Auto) 8.5 Eos % (Auto) 0.1 Baso % (Auto) 0.1 Neut # (Auto) 8.01 H Lymph # (Auto) 1.27 Bryan # (Auto) 0.87 H Eos # (Auto) 0.01 Baso # (Auto) 0.01 Immature Gran # (Auto) 0.04 H Sodium 142 Potassium 4.2 Chloride 107 Carbon Dioxide 25 Anion Gap 9.0 BUN 32 H Creatinine 1.51 H Est Cr Clr Drug Dosing 53.4 Est GFR ( Amer) 53.1 Est GFR (Non-Af Amer) 45.8 BUN/Creatinine Ratio 21.2 H Glucose 122 H POC Glucose Calcium 9.3 Hepatitis C Ab Screen Neg 02/17/20 02/17/20 02/17/20 08:04 12:02 17:05 WBC RBC Hgb Hct MCV MCH MCHC RDW Std Deviation RDW Coeff of Harry Plt Count MPV Immature Gran % (Auto) Neut % (Auto) Lymph % (Auto) Bryan % (Auto) Eos % (Auto) Baso % (Auto) Neut # (Auto) Lymph # (Auto) Bryan # (Auto) Eos # (Auto) Baso # (Auto) Immature Gran # (Auto) Sodium Potassium Chloride Carbon Dioxide Anion Gap BUN Creatinine Est Cr Clr Drug Dosing Est GFR ( Amer) Est GFR (Non-Af Amer) BUN/Creatinine Ratio Glucose POC Glucose 133 H 208 H 134 H Calcium Hepatitis C Ab Screen 02/17/20 20:42 WBC RBC Hgb Hct MCV MCH MCHC RDW Std Deviation RDW Coeff of Harry Plt Count MPV Immature Gran % (Auto) Neut % (Auto) Lymph % (Auto) Bryan % (Auto) Eos % (Auto) Baso % (Auto) Neut # (Auto) Lymph # (Auto) Bryan # (Auto) Eos # (Auto) Baso # (Auto) Immature Gran # (Auto) Sodium Potassium Chloride Carbon Dioxide Anion Gap BUN Creatinine Est Cr Clr Drug Dosing Est GFR ( Amer) Est GFR (Non-Af Amer) BUN/Creatinine Ratio Glucose POC Glucose 189 H Calcium Hepatitis C Ab Screen PG Care Time/CCT Total # of Minutes Spent Total Time Spent with Patient: Total time spent is greater than 50% in coordination of care (as documented) at patient's floor/unit and/or counseling patient: Coding Level of Care Code 52350 Subseq Hosp Care Lvl 2 Diagnoses Status post reverse arthroplasty of right shoulder Z96.611 CAD (coronary artery disease) I25.10 Congestive heart failure I50.9 Diabetes mellitus, type 2 E11.9 Chronic kidney disease, stage 3a N18.3 Acute blood loss anemia D62 BPH (benign prostatic hyperplasia) N40.0 DVT prophylaxis Z29.9
[2020-02-17] MEDS ORDERED: INSULIN GLARGINE SOLOSTAR 100 UNITS/ML 3 ML PEN SC SCH (21:00)
[2020-02-18] MEDS: OXYCODONE HCL IR 5 MG TAB (IMMEDIATE RELEASE) PO PRN ×3 (01:18→10:20)
[2020-02-18] MEDS: ACETAMINOPHEN 500 MG TAB PO SCH (05:40)
[2020-02-18 08:05] LABS: BUN Creatinine Ratio 24.5 (10-20); Calcium 8.7 mg/dl (8.5-10.1); Creatinine Clr Calc Pharmacy 59.3 ml/min; Est GFR (African American) 60.2; Potassium 3.9 mmol/L (3.5-5.1)
[2020-02-18] MEDS ORDERED: INSULIN GLARGINE SOLOSTAR 100 UNITS/ML 3 ML PEN SC SCH (09:00)
--- NOTE | 2020-02-18 09:12 | Orthopedic Progress Note ---
Date of Service February 18, 2020 Assessment & Plan (1) Status post reverse arthroplasty of right shoulder: POD #2 Right reverse TSA Limited PT/ OT DVT proph- ASA and Plavix D/C plans - Home with HEP only As per medicine- will add ferrous Admission and Anticipated Discharge Date Admission Date: February 16, 2020 Subjective Patient resting comfortably in bed. Feeling better today. Denies chest pain, SOB, dizziness, lightheadedness. Physical Exam Physical Exam: fingers mobile, NVI. Calves soft, non tender. Dressing in place, sling in place . Results & Data ([facility]) Vital Signs (Past 12 Hours) Vital Signs Temp Pulse Pulse Resp BP Pulse Ox 02/18/20 07:31 36.7 C 67 18 108/66 91 02/18/20 06:27 36.9 C 65 16 142/74 H 95 02/18/20 05:56 66 16 135/66 95 02/18/20 05:50 82 12 90/53 L 88 L 02/17/20 23:27 36.6 C 69 16 136/64 91
[2020-02-18] MEDS: INSULIN ASPART 100 UNITS/ML 3 ML PEN SC SCH (09:28)
[2020-02-18] MEDS: carvediloL 25 MG TAB PO SCH (09:35)
[2020-02-18] MEDS: DOCUSATE SODIUM 100 MG CAP PO SCH (09:36)
[2020-02-18] MEDS: MULTIVITAMIN TAB PO SCH (09:36)
[2020-02-18] MEDS: hydroCHLOROthiazide 25 MG TAB PO SCH (09:36)
[2020-02-18] MEDS: gemfibroziL 600 MG TAB PO SCH (09:36)
[2020-02-18] MEDS: CLOPIDOGREL BISULFATE 75 MG TAB PO SCH (09:36)
[2020-02-18] MEDS: SPIRONOLACTONE 25 MG TAB PO SCH (09:36)
[2020-02-18] MEDS: PANTOprazole 40 MG TAB PO SCH (09:37)
[2020-02-18] MEDS: SACUBITRIL-VALSARTAN 49/51 MG TAB PO SCH (09:37)
[2020-02-18] MEDS: EZETIMIBE 10 MG TABLET PO SCH (09:37)
[2020-02-18] MEDS: ASPIRIN 325 MG ECTAB PO SCH (09:38)
--- NOTE | 2020-02-21 09:27 | Discharge Summary (DS) ---
DISCHARGE DIAGNOSES: Osteoarthritis, right shoulder; biceps tendinopathy, rotator cuff arthropathy, chronic irreparable rotator cuff, calcific tendinitis. SECONDARY DIAGNOSES: Coronary artery disease status post myocardial infarction in 1997, hypertension, hypercholesterolemia, sleep apnea, diabetes with insulin use, osteoarthritis, gastroesophageal reflux disease, obesity, dental issues, renal calculi in the past. CONSULTATIONS: Dr. Tete Stock/Rajinder Leone. COMPLICATIONS: None. PROCEDURES: Right reverse total shoulder arthroplasty, biceps tenodesis, excision of calcium deposit. BRIEF HISTORY: As dictated in the history and physical illness. HOSPITAL SUMMARY: The patient was admitted on the above-noted date and had the above-noted surgery performed, which he tolerated well. The hospitalist service was consulted for medical management during the patient's stay. The patient was seen on 02/16/2020. On the patient's first postoperative day, he was feeling well and had no complaints. Pain was controlled. BUN and creatinine were elevated. Vital signs were stable and he was afebrile. Dressings were intact. Fingers were mobile. Sling was intact and he is alert and oriented x3. The patient was started on PT and OT protocols, continued on DVT prophylaxis with aspirin and Plavix, mildly elevated creatinine was treated accordingly by medicine service. By his second postoperative day, he was resting comfortably, feeling better each day. He had no complaints. Fingers were mobile. Neurovascularly intact. Calves were soft, nontender. Dressings in place. Sling was in place. Vital signs were stable. He was afebrile. He was remaining medically stable as well as orthopedically stable and it was felt that he could be discharged to home. For further review, please see chart. LABORATORY AND X-RAY DATA: As per chart. DISCHARGE INSTRUCTIONS: The patient was discharged to home in satisfactory condition on 02/18/2020. DIET: Resume previous diet. ACTIVITY: Nonweightbearing right upper extremity. Follow reverse total shoulder arthroplasty instructions as written and follow up with Dr. Lopez in 12-14 days. The patient to call for appointment if one has not been made for you. DISCHARGE MEDICATIONS: Acetaminophen 1000 mg p.o. q. 8 hours, Colace 100 mg p.o. b.i.d., ferrous sulfate 325 mg p.o. b.i.d., oxycodone 5-10 mg p.o. q. 4 hours p.r.n. and sennosides 17.2 mg p.o. at bedtime. Resume home meds as listed.
== END 2020-02-18 11:38 | disposition home or self-care (01) | DRG 483 ==
LOC: ASU 11:14 → 3E 17:07